=== PATIENT | male | born 1995 | race Hispanic/Latino ===

== ENCOUNTER 2025-02-28 15:14 | Emergency (ER) | payer BC, MEDICAID ==
[~2025-02-28] VITALS: Ht 170.2 cm; Wt 92.5 kg
[2025-02-28 15:23] VITALS: BP 99/49; PULSE 89; RESP 16; TEMP 98.1
--- NOTE | 2025-02-28 15:54 | NUR ---
PT JUST NOW PLACED IN MY ED BED 12
[2025-02-28 16:05] LABS: BASOPHILS # (AUTO) 0.03 K/uL (0.00-0.20); BASOPHILS % (AUTO) 0.9 % (0.0-5.0); EOSINOPHILS # (AUTO) 0.11 K/uL (0.00-0.70); EOSINOPHILS % (AUTO) 3.4 % (0.0-8.0); HEMATOCRIT 41.3 % (42-54); IMMATURE GRANULOCYTE ABSOLUTE 0.01 K/uL (0-1); LYMPHOCYTES # (AUTO) 0.2 K/uL (1.0-4.8); LYMPHOCYTES % (AUTO) 7.2 % (21.0-51.0); MEAN CORPUSCULAR HEMOGLOBIN 28.9 pg (27.0-33.0); MEAN CORPUSCULAR HGB CONC 33.2 g/dL (32.0-36.0); MEAN CORPUSCULAR VOLUME 87.1 fL (79-99); MONOCYTES # (AUTO) 0.3 K/uL (0.1-1.0); MONOCYTES % (AUTO) 8.8 % (3.0-13.0); NEUTROPHILS # (AUTO) 2.5 K/uL (1.8-7.7); NEUTROPHILS % (AUTO) 79.4 % (40.0-77.0); PLATELET COUNT (AUTO) 151 K/uL (130-400); RED BLOOD CELL COUNT(AUTO) 4.74 MIL/uL (4.50-6.20); RED CELL DISTRIBUTION WIDTH 14.8 % (11.0-15.5); WHITE BLOOD COUNT (AUTO) 3.2 K/uL (4.8-10.8)
[2025-02-28 16:21] LABS: INR 1.25 (0.85-1.15)
[2025-02-28 16:29] LABS: CREATININE 0.7 mg/dL (0.5-1.3); POTASSIUM 4.2 mmol/L (3.5-5.1)
--- NOTE | 2025-02-28 16:30 | NUR ---
I ASSISTED/WITNESSED A RECTAL EXAM BY DR COTTON
--- NOTE | 2025-02-28 18:00 | ERN ---
General Chief Complaint: Rectal Bleed Stated Complaint: RECTAL BLEEDING Time Seen by MD: 15:15 History of Present Illness Initial Comments 30-year-old male history of liver disease with metastasis, anticoagulated, who presents for bright red blood per rectum. Patient has a no complaints. No vomiting no extra bruising no a bit gastric pain no lower abdominal pain no diarrhea. He reports that today at a stool with some bright red blood in the toilet. He reports he may thing that he was hemorrhoids, but he was unsure. He is nontoxic in appearance. Allergies: Coded Allergies: amoxicillin (Unverified Allergy, Unknown, RASH, 02/28/25) Past Medical History Past Medical History: Cancer, CHF, Diabetes-Type II, Hypertension Medical History Other: TAKES ELIQUIS Past Surgical History: CABG Results Laboratory and Microbiology Lab and Micro Result Laboratory Tests Test 02/28/25 15:55 White Blood Count 3.2 K/uL (4.8-10.8) L Red Blood Count 4.74 MIL/uL (4.50-6.20) Hemoglobin 13.7 g/dL (14.0-18.0) L Hematocrit 41.3 % (42-54) L Mean Corpuscular Volume 87.1 fL (79-99) Mean Corpuscular Hemoglobin 28.9 pg (27.0-33.0) Mean Corpuscular Hemoglobin Concent 33.2 g/dL (32.0-36.0) Red Cell Distribution Width 14.8 % (11.0-15.5) Platelet Count 151 K/uL (130-400) Mean Platelet Volume 11.5 fL (7.5-10.5) H Immature Granulocyte % (Auto) 0.3 % (0-1) Neutrophils (%) (Auto) 79.4 % (40.0-77.0) H Lymphocytes (%) (Auto) 7.2 % (21.0-51.0) L Monocytes (%) (Auto) 8.8 % (3.0-13.0) Eosinophils (%) (Auto) 3.4 % (0.0-8.0) Basophils (%) (Auto) 0.9 % (0.0-5.0) Neutrophils # (Auto) 2.5 K/uL (1.8-7.7) Lymphocytes # (Auto) 0.2 K/uL (1.0-4.8) L Monocytes # (Auto) 0.3 K/uL (0.1-1.0) Eosinophils # (Auto) 0.11 K/uL (0.00-0.70) Basophils # (Auto) 0.03 K/uL (0.00-0.20) Absolute Immature Granulocyte (auto 0.01 K/uL (0-1) Nucleated Red Blood Cells 0.0 % (0.0-0.19) White Cell Morphology Comment See comments Prothrombin Time 13.0 SEC (9.6-11.6) H Prothromb Time International Ratio 1.25 (0.85-1.15) H Activated Partial Thromboplast Time 33.0 SEC (26.3-35.5) Sodium Level 135 mmol/L (136-145) L Potassium Level 4.2 mmol/L (3.5-5.1) Chloride Level 100 mmol/L (101-111) L Carbon Dioxide Level 23 mmol/L (21-32) Blood Urea Nitrogen 14 mg/dL (7-18) Creatinine 0.7 mg/dL (0.5-1.3) Glomerular Filtration Rate Calc 128 mL/min (>90) Random Glucose 88 mg/dL (70-105) Total Calcium 10.2 mg/dL (8.5-10.1) H MDM CC: Bright red blood per rectum beginning earlier today Historian: Patient Comorbidities: Liver cancer with metastasis, anticoagulated, CABG, diabetes, CHF, hypertension. Complicated medical patient. Limitations by social determinants of health: None Differential diagnosis: Hemorrhoids, lower GI bleed, upper GI bleed, anemia, coagulopathy, other Vital signs: Stable, remained stable in the ER Clinical exam: No obvious hemorrhoid, no blood on rectal exam. Abdomen soft nontender nondistended. Patient was nontoxic. No other signs of bleeding or bruising. labs ( independently ordered and interpreted by me ): Leukopenia to be CBC 3.2, 79% neutrophils. No bands. Hemoglobin stable at 13.7, normocytic. Coags show an INR 1.2, PT 13. Chemistry panel is stable. renal function normal no elevated BUN Based on the presentation patient likely has a unremarkable hemorrhoid or no life-threatening lower GI bleed. I had a discussion with the patient regarding the plan. They agreed to watch and wait approach outpatient workup. He was have follow up. I recommend he stops taking his anticoagulation for a day or two. He will return to the emergency department as needed. We will start conservative hemorrhoid measures. I recommend that he follow up as an outpatient ED Course Orders Procedure Category Date Status Time Cbc With Differential LAB 02/28/25 Complete 15:46 Prothrombin Time With LAB 02/28/25 Complete INR 15:46 Partial LAB 02/28/25 Complete Thromboplastin Time 15:46 Type And Screen BBK 02/28/25 Complete 15:46 12 Lead Ekg Tracing- EKG 02/28/25 Complete Technical 15:46 Basic Metabolic Panel LAB 02/28/25 Complete 15:46 Vital Signs Date Time Temp Pulse Resp B/P (MAP) Pulse Ox O2 Delivery O2 Flow Rate FiO2 02/28/25 15:23 98.1 89 16 99/49 90 0 DX & DISP Disposition: Discharge Departure Impression: Primary Impression: Lower GI bleed Additional Impression: Anticoagulated Condition: Stable Additional Instructions: As we discussed, your bleeding is likely due to a benign cause such as a hemorrhoid combined with anticoagulation medications. Your vital signs have been stable here in the emergency department Your blood work ( CBC, metabolic panel, PT /INR, metabolic panel ) is unremarkable. Your hemoglobin is 13.7 and you have stable platelets. As we discussed, your symptoms are likely related to a lower GI bleed, likely a bleeding internal hemorrhoid. These are generally self resolving and not dangerous. For pain relief you can take 1000 mg of Tylenol to 4 times a day. You can take 800 mg of ibuprofen as needed. You can take Sitz baths for 15-20 minutes several times per day to reduce bleeding. You can try an opra-[id number] hemorrhoid cream such as topical hydrocortisone or preparation H. Avoid straining during bowel movements. Consider stool softeners such as Metamucil. Drink plenty of liquids. I recommend 8+ cups of water per day. I recommend that you stop taking your Eliquis for the next 24-48 hours to slow the bleeding. Start taking it after that. Please return to the emergency department if you feel dizzy or lightheaded, have significant bleeding, had black stools, vomiting, fevers, or any other concerning symptom. Also, I recommend that you coordinate local oncological care. I have given you a referral to both Dr. Yap and Dr. Younger. Call for an appointment. [employer] Referrals: SELF,REFERRAL (PCP) JOHN YAP MD, TODD D MD WORTH, RYAN E DO February 28, 2025 18:00
--- NOTE | 2025-02-28 18:26 | NUR ---
VITAL SIGNS BEFORE PATIENT WAS DISCHARGED: BLOOD PRESSURE 108/41 MMHG TEMPERATURE 98.4 PULSE 73 P/MIN RESPIRATIONS 17 P/MIN O2 SATURATION 94% @ RA
--- NOTE | 2025-03-01 07:51 | EKG ---
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
== END 2025-02-28 18:25 | disposition home or self-care (01) ==
LOC: EDH 15:14
DX: K92.2 Gastrointestinal hemorrhage, unspecified (principal); E11.9 Type 2 diabetes mellitus without complications; I11.0 Hypertensive heart disease with heart failure; I50.9 Heart failure, unspecified; Z88.0 Allergy status to penicillin; Z95.1 Presence of aortocoronary bypass graft
CPT/HCPCS: 36415; 80048; 85025; 85610; 85730; 86850; 86900; 86901; 93005; 99284

== ENCOUNTER 2025-05-28 15:31 | Inpatient (IN) | payer OTHER ==
[~2025-05-28] VITALS: Ht 170.2 cm; Wt 88.9 kg
--- NOTE | 2025-05-28 15:51 | ERN ---
General Chief Complaint: Abdominal Pain Stated Complaint: ABDOMINAL PAIN Time Seen by MD: 15:34 Source: patient, family History of Present Illness Initial Comments Patient is a 30-year-old male brought in by family members due to constipation. Per family member patient has been recently receiving chemotherapy for liver cancer. He has not been able to defecate for one week. Allergies: Coded Allergies: amoxicillin (Unverified Allergy, Unknown, RASH, 02/28/25) Past Medical History Past Medical History: CHF, Liver Disease Medical History Other: TAKES ELIQUIS Past Surgical History: Other Surgical History Other: neck sx, heart sx ROS Dictation CONSTITUTIONAL: No chills, no fever, no weakness, no diaphoresis, no malaise. HEAD/FACE: No signs of trauma. EENT: No eye pain, no blurred vision, no tearing, no double vision, no ear pain, no ear discharge, no nose pain, no nasal congestion, no throat pain, no throat swelling, no mouth pain. RESPIRATORY: No cough, no orthopnea, no SOB, no stridor, no wheezing. CARDIOVASCULAR: No chest pain, no edema, no palpitations, no syncope. GASTROINTESTINAL/ABDOMINAL: abdominal pain, constipation, no diarrhea, no nausea, no vomiting. GENITOURINARY: No abnormal discharge, no dysuria, no frequent urination, no hematuria. No complaints of pain in the genitals. MUSCULOSKELETAL: No back pain, no gout, no joint pain, no joint swelling, no muscle pain, no muscle stiffness, no neck pain. INTEGUMENTARY: No change in color, no change in hair/nails, no dryness, no lesion, no lumps, no rash. NEUROLOGICAL/PSYCH: No anxiety, not depressed, no emotional problem, no headache, no numbness, no pre-existing deficit, no history of seizures, no tremors, no weakness. HEMATOLOGIC/LYMPHATIC: Not anemic, no history of blood clots, no apparent bleeding, no bruising, glands not swollen. All Systems Negative, Except as Noted. Physical Exam Physical Exam Dictation VITAL SIGNS: Reviewed. GENERAL APPEARANCE: Alert, oriented x3, no acute distress, obese. HEAD AND FACE: Non-traumatic. EYES: PERRL, pink conjunctivas, eyelid no trauma, anterior chamber clear. EARS: Pinnas intact and no signs of trauma or erythema. Ear canals clear and no discharge. TMs no erythema. NOSE: No discharge, no bleeding. OROPHARYNX: Mouth normal, teeth no caries, tongue pink. Pharynx clear, no erythema. Tonsils no exudates, no abscesses noted. Mucous membrane moist. NECK: Supple, non-tender, no thyromegaly, no masses, no JVD, no bruits. BREAST: Deferred. CHEST: No tenderness, no crepitus, no paradoxical movement, no retractions. LUNGS: Clear, well-ventilated, symmetric, no rales, no wheezing, no rhonchi, no stridor, good breath sounds bilaterally. HEART: Regular rate, regular rhythm, no murmur, no gallops. VASCULAR: No peripheral edema. ABDOMEN: Soft, positive bowel sounds, distended, no guarding, tender, no rebound, no masses no hepatomegaly, no splenomegaly, no Kurtz's sign, no hernias. RECTAL: Deferred. GENITAL: Deferred. NEUROLOGICAL: Normal speech, gross motor function intact, gross sensory function intact. MUSCULOSKELETAL: Neck nontender, full range of motion, back nontender, full range of motion. EXTREMITIES: Nontender, full range of motion. SKIN: Color pink, dry, no turgor, no rash, no lacerations, no abrasions, no contusions. LYMPHATICS: Deferred. Results Laboratory and Microbiology Lab and Micro Result Laboratory Tests Test 05/28/25 16:08 White Blood Count 6.9 K/uL (4.8-10.8) Red Blood Count 4.91 MIL/uL (4.50-6.20) Hemoglobin 14.4 g/dL (14.0-18.0) Hematocrit 42.8 % (42-54) Mean Corpuscular Volume 87.2 fL (79-99) Mean Corpuscular Hemoglobin 29.3 pg (27.0-33.0) Mean Corpuscular Hemoglobin Concent 33.6 g/dL (32.0-36.0) Red Cell Distribution Width 19.3 % (11.0-15.5) H Platelet Count 251 K/uL (130-400) Mean Platelet Volume 11.8 fL (7.5-10.5) H Immature Granulocyte % (Auto) 0.6 % (0-1) Neutrophils (%) (Auto) 80.1 % (40.0-77.0) H Lymphocytes (%) (Auto) 5.0 % (21.0-51.0) L Monocytes (%) (Auto) 13.7 % (3.0-13.0) H Eosinophils (%) (Auto) 0.3 % (0.0-8.0) Basophils (%) (Auto) 0.3 % (0.0-5.0) Neutrophils # (Auto) 5.5 K/uL (1.8-7.7) Lymphocytes # (Auto) 0.3 K/uL (1.0-4.8) L Monocytes # (Auto) 0.9 K/uL (0.1-1.0) Eosinophils # (Auto) 0.02 K/uL (0.00-0.70) Basophils # (Auto) 0.02 K/uL (0.00-0.20) Absolute Immature Granulocyte (auto 0.04 K/uL (0-1) Nucleated Red Blood Cells 0.0 % (0.0-0.19) White Cell Morphology Comment See comments Red Blood Cell Morphology See comments Sodium Level 128 mmol/L (136-145) L Potassium Level 5.3 mmol/L (3.5-5.1) H Chloride Level 96 mmol/L (101-111) L Carbon Dioxide Level 21 mmol/L (21-32) Blood Urea Nitrogen 114 mg/dL (7-18) *H Creatinine 4.5 mg/dL (0.5-1.3) H Glomerular Filtration Rate Calc 17 mL/min (>90) Random Glucose 85 mg/dL (70-105) Total Calcium 10.9 mg/dL (8.5-10.1) H Total Bilirubin 1.9 mg/dL (0.2-1.0) H Aspartate Amino Transf (AST/SGOT) 43 U/L (10-37) H Alanine Aminotransferase (ALT/SGPT) 21 U/L (12-78) Alkaline Phosphatase 185 U/L (50-136) H Total Protein 7.0 g/dL (6.0-8.3) Albumin 2.7 g/dL (3.5-5.0) L Labs Reviewed?: Yes EKG/XRAY/US/CT/MRI CT Scan Comment [facility] [address] [place] [id number] IMAGING REPORT Signed PATIENT: SERAFIN EDGE MR#: [id number] : 1995 SEX: M AGE: 30 LOCATION: ED ORDER 46 STATUS: REG REPORT#: [id number] SERVICE [id number] REASON: ABD PAIN ORDERING PHYSICIAN: FELIX MENDEZ MD PROCEDURE: ABD PEL WO - CT ABDOMEN/PELVIS W/O CONTRAST EXAM: CT Abdomen and Pelvis Without IV contrast CLINICAL HISTORY: ABD PAIN TECHNIQUE: Axial computed tomography images of the abdomen and pelvis without intravenous contrast. CONTRAST: No IV contrast. COMPARISON: None provided. FINDINGS: LUNG BASES: Trace pleural effusion on right side. The lung bases appear clear. LIVER: Appears normal in size with nodular surface and shows few hypodense lesions both lobes. Triple phase CT is advised. GALLBLADDER AND BILE DUCTS: The gallbladder appears within normal limits. No radioopaque gallstones are seen. No biliary ductal dilatation is evident. PANCREAS: Unremarkable. SPLEEN: Spleen appears enlarged (17 cm) and shows areas of hypodensity in the mid and lower poles. Triple phase CT is advised to rule out splenic infarcts ADRENAL GLANDS: Unremarkable. KIDNEYS, URETERS, AND BLADDER: The kidneys appear within normal limits. There is no hydronephrosis or hydroureter. No urinary calculi are seen. STOMACH AND BOWEL: Unremarkable appearance of the stomach and bowel. No evidence of bowel obstruction. No evidence suggesting enteritis or colitis. APPENDIX: No evidence of acute appendicitis on CT examination. PERITONEUM: Gross free fluid. No free air. LYMPH NODES: No lymphadenopathy is evident. REPRODUCTIVE: Unremarkable as visualized. VASCULATURE: Splenic hilar and splenorenal collaterals. No evidence of abdominal aortic aneurysm. BONES: Generalised subcutaneous fat stranding and oedema. No aggressive appearing osseous lesion. No acute osseous pathology evident. IMPRESSION: 1. Nodular liver with hypodense lesions, concerning for cirrhosis with possible masses. 2. Splenomegaly (17 cm) with hypodense lesions, concerning for splenic infarcts. 3. Portal hypertension with splenic hilar and splenorenal collaterals. 4. Gross ascites. 5. Recommend triple phase CT of the liver and spleen for further evaluation /[place] DICTATED BY: NICK HOBSON MD DATE: 05/28/251829 ELECTRONICALLY SIGNED BY: NICK HOBSON MD DATE: 05/28/251829 MDM MDM: Differential diagnosis: UTI, liver cancer, splenomegaly, constipation Rationale: Tests considered and ordered secondary to shared decision making include: Previous outside records reviewed: Old ER visits. Risk of complication and/or morbidity or mortality of patient management: None Medications-Per medication reconciliation Need for hospitalization: Patient does meet criteria for hospitalization. Need for emergency major/minor surgery: No There are no social concerns with this patient. Prescription drug management Prescriptions will include symptomatic care Patient's prior external medical records from other ER visits were reviewed by me as indicated. Prior testing and results from previous visits were reviewed. Prior tests were taken into account with medical decision making and resource utilization, independent historian/historians were used to obtain complete medical history. I independently interpreted the test that were performed, results were reviewed by me and considered findings on radiology if ordered. Medical management and examination interpretation discussions were had by me with other qualified healthcare professionals as indicated for the patient's care. Patient will be admitted under the care of hospitalist group for ongoing management. ED Course Orders Procedure Category Date Status Time Cbc With Differential LAB 05/28/25 Complete 15:46 Comprehensive LAB 05/28/25 Complete Metabolic Panel 15:46 Urinalysis Profile LAB 05/28/25 Logged 15:46 Ct Abdomen/Pelvis W/O CT 05/28/25 Resulted Contrast 15:46 Lactulose 20 Gm/30 Ml PHA 05/28/25 Complete Udcup (Constulose 16:00 Magnesium Citrate PHA 05/28/25 Complete (Magnesium Citrate) 16:00 Ondansetron 4mg Inj PHA 05/28/25 In Process (Zofran 4mg Inj) 18:30 Ondansetron 4mg Inj PHA 05/28/25 Complete (Zofran 4mg Inj) 18:04 Current Medications Medications (Trade) Dose Ordered Sig/[place] Route PRN Reason Start Time Stop Time Status Last Admin Dose Admin Lactulose (Constulose 20gm/ 30ml Udcup) 20 gm ONCE ONCE PO 05/28/25 16:00 05/28/25 16:01 DC 05/28/25 16:41 Magnesium Citrate (Magnesium Citrate) 296 ml ONCE ONCE PO 05/28/25 16:00 05/28/25 16:01 DC 05/28/25 16:41 Ondansetron HCl (zoFRAN 4MG INJ) 4 mg ONCE ONCE IVP 05/28/25 18:30 05/28/25 18:31 Ondansetron HCl (zoFRAN 4MG INJ) 4 mg STK-MED ONCE .ROUTE 05/28/25 18:04 05/28/25 18:09 DC Vital Signs Date Time Temp Pulse Resp B/P (MAP) Pulse Ox O2 Delivery O2 Flow Rate FiO2 05/28/25 18:17 97.9 77 18 108/34 94 Room Air* 0 21 05/28/25 15:38 97.2 81 18 86/29 91 Room Air* 0 21 05/28/25 15:34 97.2 81 18 86/29 91 Room Air 0 DX & DISP Disposition: Inpatient Decision to Admit Time: 18:28 Departure Impression: Primary Impression: Liver cancer Additional Impressions: Acute kidney injury, Hyperkalemia, Splenomegaly, Constipation Condition: Stable Referrals: SELF,REFERRAL (PCP) FELIX MENDEZ MD May 28, 2025 15:51
[2025-05-28 16:15] LABS: IMMATURE GRANULOCYTE ABSOLUTE 0.04 K/uL (0-1); NUCLEATED RED BLOOD CELLS 0.0 % (0.0-0.19); PLATELET COUNT (AUTO) 251 K/uL (130-400); RED BLOOD CELL COUNT(AUTO) 4.91 MIL/uL (4.50-6.20); RED CELL DISTRIBUTION WIDTH 19.3 % (11.0-15.5); WHITE BLOOD COUNT (AUTO) 6.9 K/uL (4.8-10.8)
[2025-05-28] MEDS: MAGNESIUM CITRATE 296 ML SOLUTION PO ONE (16:41)
[2025-05-28] MEDS: LACTULOSE 20 GM/30 ML UDCUP PO ONE (16:41)
[2025-05-28 16:54] LABS: ASPARTATE AMINOTRANSFERASE 43.0 U/L (10-37); CREATININE 4.5 mg/dL (0.5-1.3); GLOMERULAR FILTR. RATE CALC 17.0 mL/min (>90); GLUCOSE,RANDOM 85.0 mg/dL (70-105); SODIUM SERUM 128.0 mmol/L (136-145); TOTAL PROTEIN, SERUM 7.0 g/dL (6.0-8.3)
[2025-05-28 16:56] LABS: UREA NITROGEN, BLOOD 114.0 mg/dL (7-18)
--- NOTE | 2025-05-28 17:31 | HMCIMG ---
EXAM: CT Abdomen and Pelvis Without IV contrast CLINICAL HISTORY: ABD PAIN TECHNIQUE: Axial computed tomography images of the abdomen and pelvis without intravenous contrast. CONTRAST: No IV contrast. COMPARISON: None provided. FINDINGS: LUNG BASES: Trace pleural effusion on right side. The lung bases appear clear. LIVER: Appears normal in size with nodular surface and shows few hypodense lesions both lobes. Triple phase CT is advised. GALLBLADDER AND BILE DUCTS: The gallbladder appears within normal limits. No radioopaque gallstones are seen. No biliary ductal dilatation is evident. PANCREAS: Unremarkable. SPLEEN: Spleen appears enlarged (17 cm) and shows areas of hypodensity in the mid and lower poles. Triple phase CT is advised to rule out splenic infarcts ADRENAL GLANDS: Unremarkable. KIDNEYS, URETERS, AND BLADDER: The kidneys appear within normal limits. There is no hydronephrosis or hydroureter. No urinary calculi are seen. STOMACH AND BOWEL: Unremarkable appearance of the stomach and bowel. No evidence of bowel obstruction. No evidence suggesting enteritis or colitis. APPENDIX: No evidence of acute appendicitis on CT examination. PERITONEUM: Gross free fluid. No free air. LYMPH NODES: No lymphadenopathy is evident. REPRODUCTIVE: Unremarkable as visualized. VASCULATURE: Splenic hilar and splenorenal collaterals. No evidence of abdominal aortic aneurysm. BONES: Generalised subcutaneous fat stranding and oedema. No aggressive appearing osseous lesion. No acute osseous pathology evident. IMPRESSION: 1. Nodular liver with hypodense lesions, concerning for cirrhosis with possible masses. 2. Splenomegaly (17 cm) with hypodense lesions, concerning for splenic infarcts. 3. Portal hypertension with splenic hilar and splenorenal collaterals. 4. Gross ascites. 5. Recommend triple phase CT of the liver and spleen for further evaluation /[place]
--- NOTE | 2025-05-28 18:32 | HP ---
History of Present Illness Reason for Visit: constipation History of Present Illness Mr. Seay is a 30-year-old male that was seen and examined today on 05/28/2025. Patient is a good historian of personal health. Patient's aunt, Eileen Smith is at bedside and provides the following information. Patient came to the emergency department with a chief complaint of constipation. Onset was one week. Location is rectum. Duration is constant. Character is described as no bowel movement for one week. There was no alleviating factors. There was no aggravating factors. Aunt reports associated decreased water intake for one week and bloating. Today in the emergency department sodium 128, potassium 5.3, creatinine 4.5, total bilirubin 1.9, no urinalysis has been collected or sent to lab. CT of abdomen and pelvis shows nodular liver, splenomegaly, portal hypertension. Emergency room physician recommended patient be admitted with a diagnosis of acute kidney injury. Past Medical History ADDITIONAL PAST MEDICAL HISTORY: [Liver CA with metastasis to neck, CHF (congenital origin and unknown EF), outpatient oncologist, Dr. Gutierrez] SOCIAL HISTORY: [Negative for smoking, alcohol use, drug use. Patient lives with his aunt, Eileen. Patient is typically independent of his ADLs. Patient denies difficulty pain is bills.] SURGICAL HISTORY: [Neck tumor excision, heart surgery, Fontan surgery] Review of Systems General: No Fever, No Chills, No Night Sweats, No Fatigue, No Malaise, No Appetite, No Other HEENT: No Head Aches, No Visual Changes, No Eye Pain, No Ear Pain, No Dysphasia, No Sinus Congestion, No Post Nasal Drip, No Sore Throat, No Other Pulmonary: No Dyspnea, No Cough, No Pleuritic Chest Pain, No Other Cardiovascular: No: Chest Pain, Palpitations, Orthopnea, Paroxysmal Noc. Dyspnea, Edema, Lt Headedness, Other Gastrointestinal: Abdominal Pain, Constipation; No: Nausea, Vomiting, Diarrhea, Melena, Hematochezia, Other Genitourinary: No Dysuria, No Frequency, No Incontinence, No Hematuria, No Retention, No Other Musculoskeletal: No: other, neck pain, shoulder pain, arm pain, back pain, hand pain, leg pain, foot pain Skin: No Urticaria, No Rash, No Other Neurological: No: Weakness, Numbness, Incoordination, Change in speech, Confusion, Seizures, Other Allergies: Coded Allergies: amoxicillin (Unverified Allergy, Unknown, RASH, 02/28/25) Scheduled Apixaban (Eliquis), 5 MG PO BID, (Reported) Buspirone HCl (Buspirone HCl), 1 TAB PO BID, (Reported) Folic Acid (Folic Acid), 1 MG PO DAILY, (Reported) Hydroxyzine HCl (Hydroxyzine HCl), 1 TAB PO BID, (Reported) Lisinopril (Lisinopril), 1 TAB PO DAILY, (Reported) Scheduled PRN Tramadol HCl/Acetaminophen (Tramadol-Acetaminophn 37.5-325), 1-2 TAB PO Q8H PRN for pain, (Reported) Exam Vital Signs Vital Signs Date Time Temp Pulse Resp B/P (MAP) Pulse Ox O2 Delivery O2 Flow Rate FiO2 05/28/25 18:17 97.9 77 18 108/34 94 Room Air* 0 21 General Appearance: Alert, Oriented X3, Cooperative, mild distress HEENT: Atraumatic, EOMI, Mucous membr. moist/pink Respiratory: Clear to auscultation, Normal air movement, NL respiratory effort Cardiovascular: Regular rate, Regular rhythm, Normal S1, Normal S2 Abdominal: Normal bowel sounds, Soft, No tenderness Extremities: No edema Skin: No significant lesion Neuro: Normal speech, Strength at 5/5 X4 ext, Sensation intact, Cranial nerves 3-12 NL Psych/Mental Status: Mental status NL, Mood NL, Thoughts/Content NL Assessment/Plan ASSESSMENT: [ Acute kidney injury, POA Hyperkalemia, POA Hyponatremia, POA Constipation, POA Splenomegaly, POA Portal hypertension, POA Liver cancer CHF] PLAN: [ Admit patient to medical floor as inpatient status. Place patient on telemetry monitoring. Constipation: Patient received Mag citrate times 1 in the ER. Patient received lactulose 20 g/30 mL by mouth times 1 in the ER Acute kidney injury: Calculate FENA Check urine sodium, creatinine, osmolality Avoid nephrotoxic agents when possible Renally dose all medications when possible Patient will be followed by Nephrology Service, Dr. Rueda. Monitor patient's labs. Weight patient daily. Monitor intake and output. Hyperkalemia: Patient received Lokelma 10 g by mouth as 1 in the ER Hyponatremia: Patient is being followed by Nephrology Service. 0.9% NS at 75 mL/HR. CHF of unknown EF: Check 2D echo in a.m., follow up with the results Consider resuming home medications once they have been reconciled. At time of admission home medications have been reconciled. Avoid diuresis due to known acute kidney injury currently in exacerbation Liver CA: Consult patient's oncologist, Dr. Gutierrez for evaluation and further recommendations. Portal hypertension, splenomegaly: Consider consulting Gastroenterology service if recommended by oncology service. GI prophylaxis, Protonix DVT prophylaxis, Keyur's and SCDs avoid anticoagulation at this time due to known liver CA. ADVANCED CARE PLANNING 1. Which of the following were discussed? Hospice Care - Yes Therapeutic options - yes Advance Directives - Yes - patient states his aunt, Eileen is his designated medical power of research attorney Other discussions - patient wishes to remain a full code at this time 2. Discussed with who? Patient 3. Voluntary nature of this service was explained to the patient? Yes 4. Amount of time spent - ___16 minutes____ 5. Reviewed by Physician? (if this service was performed by NPP) Yes This document was generated in part using voice recognition software, occasional wrong word or sound alike substitutions may have occurred due to the inherent limitations of voice recognition software. Read the chart carefully and paul gnize using context, where the substitutions have occurred. Although every effort was made to edit the content, cable installer repairer and typing errors may occur ATTESTATION BY PHYSICIAN I have seen and examined the patient. I reviewed the documentation, medical decision making, and treatment plan as noted by the mid-level provider above. I agree with the findings and plan of care.] JOSE ALEJANDRO [facility] May 28, 2025 18:32
[2025-05-28] MEDS ORDERED: BUSP5TAB3 PO (19:17)
[2025-05-28] MEDS ORDERED: HYDR-3421 PO (19:17)
[2025-05-28] MEDS ORDERED: APIX5TAB PO (19:17)
[2025-05-28] MEDS ORDERED: FOLI0.4T6 PO (19:17)
[2025-05-28] MEDS ORDERED: LISI10TA24 PO (19:17)
[2025-05-28] MEDS ORDERED: TRAM-543 PO (19:17)
--- NOTE | 2025-05-28 19:17 | NUR ---
MEDS UPDATES. PENDING RECONCILIATION
--- NOTE | 2025-05-28 21:03 | NUR ---
SPOKE TO DR BLACK FOR NEPHROLOGY CONSULT. MADE AWARE. ORDERS GIVEN AND TRANSCRIBED.
[2025-05-28] MEDS: 0.9%NACL 1000ML 1,000 ML IV SCH (21:07)
[2025-05-28] MEDS: NA ZIRCON CYCLOSIL(LOKELMA 10GM) PO ONE (21:09)
[2025-05-29 02:11] LABS: CREATININE,URINE RANDOM 265.24 mg/dL (30-135)
[2025-05-29 02:17] LABS: APPEARANCE,URINE CLEAR (CLEAR); GLUCOSE, URINE (UA) NEGATIVE (NEGATIVE); LEUKOCYTE ESTERASE ,URINE NEGATIVE Leu/uL (NEGATIVE); NITRATE,URINE NEGATIVE (NEGATIVE); OCCULT BLOOD,URINE NEGATIVE (NEGATIVE); OTHER CASTS, URINE 1 /LPF (None Seen); SQUAMOUS EPITHELIAL CELL,UR RARE /HPF (0-2)
--- NOTE | 2025-05-29 07:05 | NUR ---
Assumed patients care.
--- NOTE | 2025-05-29 08:00 | NUR ---
Patient was placed in a hospital bed. Bed low and locked, bed rails up x3.
[2025-05-29 08:06] LABS: IMMATURE GRANULOCYTE ABSOLUTE 0.03 K/uL (0-1); NUCLEATED RED BLOOD CELLS 0.0 % (0.0-0.19); PLATELET COUNT (AUTO) 212 K/uL (130-400); RED BLOOD CELL COUNT(AUTO) 4.82 MIL/uL (4.50-6.20); RED CELL DISTRIBUTION WIDTH 19.9 % (11.0-15.5); WHITE BLOOD COUNT (AUTO) 6.2 K/uL (4.8-10.8)
[2025-05-29 08:18] LABS: CREATININE 4.4 mg/dL (0.5-1.3); GLOMERULAR FILTR. RATE CALC 18.0 mL/min (>90); GLUCOSE,RANDOM 78.0 mg/dL (70-105); PHOSPHORUS 5.4 mg/dL (2.5-4.9); SODIUM SERUM 126.0 mmol/L (136-145)
[2025-05-29 08:23] LABS: UREA NITROGEN, BLOOD 118.0 mg/dL (7-18)
--- NOTE | 2025-05-29 10:17 | NUR ---
Home medication have been reviewed and in the system; pending to be reconsiled by attending physician.
--- NOTE | 2025-05-29 11:34 | NUR ---
Called for report. Spoke to . Evonne JOVANY. Discussed plan of care, medications, home medications that need to be reconsiled, and pending consults. SBAR in chart.
--- NOTE | 2025-05-29 12:19 | PN ---
[facility] PROGRESS NOTE Date of Service: May 29, 2025 Time of Service: 12:16 SUBJECTIVE: [ ] Patient came to the emergency department with a chief complaint of constipation. Onset was one week. Location is rectum. Duration is constant. Character is described as no bowel movement for one week. There was no alleviating factors. There was no aggravating factors. Aunt reports associated decreased water intake for one week and bloating. Today in the emergency department sodium 128, potassium 5.3, creatinine 4.5, total bilirubin 1.9, no urinalysis has been collected or sent to lab. CT of abdomen and pelvis shows nodular liver, splenom egaly, portal hypertension. Emergency room physician recommended patient be admitted with a diagnosis of acute kidney injury. 05/29/25 patient was seen and examined. Patient appears fatigue weak failure to strive. Poor oral intake Review home medication we will hold off on NSAIDs in lisinopril. Waiting for oncologists recommendations apparently patient came from [facility] pexyw-my-doxbvdih reports a wanted to be closer to home. REVIEW OF SYSTEMS CONSTITUTIONAL: Denies fevers, chills, or night sweats. No unintentional weight loss reported. NEUROLOGICAL: Denies headache, amaurosis fugax, motor weakness, sensory deficit, vertigo/spinning sensation, gait abnormalities, or tremors. ENT: No hearing loss, otalgia, otorrhea, rhinitis, rhinorrhea, hoarseness, or sore throat. CARDIOVASCULAR: Denies any exertional angina, dyspnea on exertion, orthopnea, paroxysmal nocturnal dyspnea, palpitations, life-threatening arrhythmias, claudication. PULMONARY: Denies any shortness of breath, cough, phlegm/sputum, hemoptysis, pleuritic chest pain. SLEEP: Denies morning headaches, daytime somnolence or napping. Denies difficulty falling asleep, staying asleep, waking from sleep. Denies knowledge of snoring. GASTROINTESTINAL: Denies any type of dysphagia to either liquids or solids. Denies nausea, vomiting, pyrosis, early satiety, abdominal pain, diarrhea, constipation, or changes in stool consistency or caliber. Denies coffee-ground emesis, hematemesis, hematochezia, or melanotic stools. GENITOURINARY: Denies frequency, urgency, nocturia, hematuria or incontinence (Storage/Irritative symptoms.) Low urinary stream, straining to void, urinary intermittency or hesitancy, splitting of the voiding stream, terminal dribbling. ENDOCRINOLOGIC: Denies polyuria, polydipsia, polyphagia or heat/cold intolerances. HEMATOLOGIC: Denies thrombophilia/previous clots, or coagulopathy/bleeding disorders. ONCOLOGIC: Denies personal history of malignancy. DERMATOLOGIC: Denies rashes or pruritus. PSYCHIATRIC: Denies any suicidal or homicidal ideation. Denies hallucinations. PHYSICAL EXAM GENERAL APPEARANCE: The patient is awake, alert, and oriented, in no acute cardiopulmonary distress. NEUROLOGICAL: Cranial nerves II-XII grossly intact. Motor is 5/5 in bilateral upper and lower extremities proximal to distal. No sensory deficits. HEENT: Face is symmetric. Pupils are equal and reactive. Extraocular movements are intact. NECK: Supple. No JVD. No thyromegaly. No submental, submandibular, pre- /postauricular, occipital or supraclavicular lymphadenopathy. CHEST: Normal chest expansion. No Telemetry. LUNGS: Absence of any rales, rhonchi or any wheezing. CARDIOVASCULAR: Regular. S1 and S2 normal. No appreciable rubs, murmurs or gallops. ABDOMEN: Soft, nontender, and nondistended. There is no rebound, voluntary guarding, or rigidity. : Deferred. No Landis. EXTREMITIES: Non-edematous and not cyanotic. No clubbing. Good capillary refill. SKIN: No skin breakdown. Vital Signs (last 8hr) Date Time Temp Pulse Resp B/P (MAP) Pulse Ox O2 Delivery O2 Flow Rate FiO2 05/29/25 11:38 98.1 77 15 116/30 94 Room Air* 0 21 05/29/25 07:05 97.9 76 18 107/32 94 Room Air* 0 21 05/29/25 06:03 98.2 71 18 118/37 93 Room Air* 0 21 05/29/25 04:54 98.2 69 23 121/36 93 Room Air* 0 21 LABS: Laboratory: Test 05/29/25 07:47 05/29/25 01:29 05/28/25 16:08 Range/Units White Blood Count 6.2 4.8-10.8 K/uL Red Blood Count 4.82 4.50-6.20 MIL/uL Hemoglobin 14.2 14.0-18.0 g/dL Hematocrit 44.0 42-54 % Mean Corpuscular Volume 91.3 79-99 fL Mean Corpuscular Hemoglobin 29.5 27.0-33.0 pg Mean Corpuscular Hemoglobin Concent 32.3 32.0-36.0 g/dL Red Cell Distribution Width 19.9 H 11.0-15.5 % Platelet Count 212 130-400 K/uL Mean Platelet Volume 11.8 H 7.5-10.5 fL Immature Granulocyte % (Auto) 0.5 0-1 % Neutrophils (%) (Auto) 80.4 H 40.0-77.0 % Lymphocytes (%) (Auto) 5.0 L 21.0-51.0 % Monocytes (%) (Auto) 13.1 H 3.0-13.0 % Eosinophils (%) (Auto) 0.5 0.0-8.0 % Basophils (%) (Auto) 0.5 0.0-5.0 % Neutrophils # (Auto) 5.0 1.8-7.7 K/uL Lymphocytes # (Auto) 0.3 L 1.0-4.8 K/uL Monocytes # (Auto) 0.8 0.1-1.0 K/uL Eosinophils # (Auto) 0.03 0.00-0.70 K/uL Basophils # (Auto) 0.03 0.00-0.20 K/uL Absolute Immature Granulocyte (auto 0.03 0-1 K/uL Nucleated Red Blood Cells 0.0 0.0-0.19 % Sodium Level 126 L 136-145 mmol/L Potassium Level 5.4 H 3.5-5.1 mmol/L Chloride Level 96 L 101-111 mmol/L Carbon Dioxide Level 19 L 21-32 mmol/L Blood Urea Nitrogen 118 *H 7-18 mg/dL Creatinine 4.4 H 0.5-1.3 mg/dL Glomerular Filtration Rate Calc 18 >90 mL/min Random Glucose 78 70-105 mg/dL Total Calcium 11.0 H 8.5-10.1 mg/dL Phosphorus Level 5.4 H 2.5-4.9 mg/dL Magnesium Level 2.30 1.80-2.40 mg/dL Urine Color YELLOW YELLOW Urine Appearance CLEAR CLEAR Urine pH 5.0 5.0-8.0 Urine Specific [place] 1.015 1.001-1.031 Urine Protein 20 H NEGATIVE mg/dL Urine Glucose (UA) NEGATIVE NEGATIVE mg/dL Urine Ketones NEGATIVE NEGATIVE mg/dL Urine Occult Blood NEGATIVE NEGATIVE Urine Nitrate NEGATIVE NEGATIVE Urine Bilirubin 0.5 H NEGATIVE mg/dL Urine Urobilinogen 0.2 0.2-1.0 mg/dL Urine Leukocyte Esterase NEGATIVE NEGATIVE Shelley/uL Urine RBC 2-5 H 0-1 /HPF Urine WBC 6-10 H 0-1 /HPF Urine Squamous Epithelial Cells RARE 0-2 /HPF Urine Bacteria None None Seen /HPF Urine Hyaline Casts 2-5 H 0-1 /LPF /LPF Urine Other Casts 1 None Seen /LPF Urine Random Creatinine 265.24 H 30-135 mg/dL Urine Random Sodium < 13 L 40-220 mmol/l White Cell Morphology Comment See comments Red Blood Cell Morphology See comments Total Bilirubin 1.9 H 0.2-1.0 mg/dL Aspartate Amino Transf (AST/SGOT) 43 H 10-37 U/L Alanine Aminotransferase (ALT/SGPT) 21 12-78 U/L Alkaline Phosphatase 185 H 50-136 U/L Total Protein 7.0 6.0-8.3 g/dL Albumin 2.7 L 3.5-5.0 g/dL Current Medications Medications (Trade) Dose Ordered Sig/[place] Route PRN Reason Start Time Stop Time Status Last Admin Dose Admin Acetaminophen (TYLenol 325MG TAB) 650 mg Q6H PRN PO TEMPERATURE GREATER THAN 101.5 05/28/25 19:30 06/27/25 19:29 Heparin Sodium (Porcine) (HEParin 5,000 UNIT VIAL) 5,000 unit BID SQ 05/28/25 21:00 05/28/25 20:34 DC Hydralazine HCl (APRESOLine 20MG INJ) 10 mg Q6H PRN IV For:SBP above 160;DBP above 90 05/28/25 19:30 06/27/25 19:29 Midodrine (PROAMatine 5 MG TABLET) 10 mg TID PO 05/29/25 14:00 06/28/25 13:59 Morphine Sulfate (morPHINE 2MG SYG) 2 mg Q4H PRN IVP SEVERE PAIN (7-10) 05/28/25 19:30 06/04/25 19:29 Ondansetron HCl (zoFRAN 4MG INJ) 4 mg Q6H PRN IV NAUSEA/VOMITING 05/28/25 19:30 06/27/25 19:29 Pantoprazole Sodium (PROTonix 40MG TAB) 40 mg DAILY PO 05/29/25 09:00 06/28/25 08:59 05/29/25 10:02 40 MG Sodium Chloride 1,000 ml @ 75 mls/hr [id number] IV 05/28/25 19:30 06/27/25 19:29 05/29/25 10:03 75 MLS/HR DIAGNOSTICS / RADIOLOGY: [ ] ASSESSMENT: [ ] Acute kidney injury on CRF stage IV no hemodialysis, POA Failure to Thrive POA ascites secondary to liver cancer Metastatic POA liver cancer Metastatic with cirrhosis POA Hypercoaguable state on prophaxlis Eliquis s/p removal of tumor 01/18 POA Electrolytes derangement: Hyperkalemia Hyponatremia, , POA Constipation, POA Splenomegaly, POA Portal hypertension, POA severe protein calorie malnutrition POA Debility with physical deconditioning PPOA PLAN: [ ] Admit: medical floor condition:poor prognosis Status:full IVF:[facility], oncologist will monitor H/H trends: transfuse to keep Hgb above 7.0 imaging : Sonogram renal. avoid NSAIDs stop lisinopril Labs cbc, cmp, mag+ Replace electrolytes as needed as per protocol to keep potassium above 4.0 magnesium 2.0. Home medications RECONCILED Decubitus precautions Supportive measures: DVT ppx, GI ppx all questions answered Supervising MD: Dr. margarita Merida c/d This document was generated in part using voice recognition software, occasional wrong word or sound alike substitutions may have occurred due to the inherent limitations of voice recognition software. Read the chart carefully and recognize using context, where the substitutions have occurred. Although every effort was made to edit the content, public health internship and typing errors may occur ATTESTATION BY PHYSICIAN I have seen and examined the patient. I reviewed the documentation, medical decision making, and treatment plan as noted by the mid-level provider above. I agree with the findings and plan of care. Kimber Zimmerman MD, [facility]IZABETH NP May 29, 2025 12:19
[2025-05-29 12:30] VITALS: O2SAT 95
--- NOTE | 2025-05-29 12:41 | CONS ---
REFERRING PHYSICIAN: Jose Roberto Lowe MD REASON FOR CONSULTATION: Renal failure. HISTORY OF PRESENT ILLNESS: A 30-year-old male presented to the hospital with complaints of failure to thrive. The patient has been having poor intake and generalized fatigue. The patient was found to have significant constipation. In the Emergency Room, the patient was found to have significant ascites. Laboratory values revealed an elevated BUN and creatinine. The patient has a history of known liver cancer and does follow up with Oncology and the patient is being seen in consultation for all of the above. PAST MEDICAL HISTORY: Metastatic cancer. PAST SURGICAL HISTORY: He has had tumor excision. SOCIAL HISTORY: No alcohol or tobacco use. FAMILY HISTORY: There is no renal disease in his family. ALLERGIES: HE HAS ALLERGY TO AMOXICILLIN. MEDICATIONS: All noted. REVIEW OF SYSTEMS: CONSTITUTIONAL: He is feeling weak and tired. HEENT: No change in vision. No change in hearing. CARDIOVASCULAR: There is no current chest pain or palpitations. PULMONARY: There is no shortness of breath. GASTROINTESTINAL: Appetite has been poor. MUSCULOSKELETAL: Complaints of weakness. NEUROLOGIC: No seizures or focal deficits. PSYCHIATRIC: No history of hallucination or psychosis. ENDOCRINE: There is no diabetes mellitus or thyroid disease. HEME: As described above. PHYSICAL EXAMINATION: VITAL SIGNS: Blood pressure is 107/32, pulse in the 70s. He is afebrile. GENERAL: He is a chronically ill male, much older than appearing. HEENT: Head is atraumatic. Pupils equal, round, reactive to light. Oropharynx is without exudate. Nares clear. NECK: There is no JVP. No thyromegaly. CARDIOVASCULAR: Regular. There is no S3 or S4 gallop. LUNGS: Coarse with equal thoracic movement. ABDOMEN: Soft, nondistended, nontender. EXTREMITIES: There is no clubbing, no cyanosis. NEUROLOGICAL: He is awake. He is alert. He is oriented. SKIN: Reveals no rash no nodule. BACK: There is no CVA tenderness. No back deformities. LABORATORY DATA: Sodium 126, potassium 5.4, chloride 96, bicarbonate 19, BUN 118 with a creatinine of 4.4. Hemoglobin 14, hematocrit 44. Urinalysis is noted. Urine sodium is less than 13. IMPRESSION: * Acute renal failure. * Metastatic liver cancer with cirrhosis. * Hypotension. * Electrolyte abnormalities. PLAN: The patient presents with significant renal dysfunction. The patient's urine sodium of less than 20 consistent with a prerenal azotemia from the cirrhosis. The patient will need to be seen by Oncology in regards to his overall prognosis. The patient will be started on midodrine for the hypotension. The patient's IV fluids will need to be discontinued once he is tolerating some amount of a diet. All labs will be repeated in the morning. I did discuss the case in detail with the patient's family. The patient will be given a dose of Lokelma for the hyperkalemia. All labs will be repeated in the morning. TID: [id number] RECEIPT: [id number]
[2025-05-29 13:09] VITALS: BP 108/38; PULSE 72; RESP 18; TEMP 98.2
--- NOTE | 2025-05-29 16:00 | NUR ---
D/C PLAN CM spoke to patient and patient's aunt named Marilyn at bedside. Reports patient is semi independent with ADLs. States he ambulates with a walker. Denies having any home services. States she stays with patient to assist in care. Plan for now is to return home to same setting. No needs verbalized. CM to f/u. Addendum: 05/29/25 at 1602 by BRUNILDA RADFORD CM Amended: Links added. Addendum: 05/29/25 at 1604 by BRUNILDA RADFORD CM Amended: Links added.
[2025-05-29 17:39] VITALS: BP 110/41; PULSE 70; RESP 18; TEMP 98
[2025-05-29 17:40] VITALS: BP 110/41; PULSE 70; RESP 18; TEMP 98
[2025-05-29 20:00] VITALS: BP 109/37; PULSE 64; RESP 16; TEMP 97.9; O2SAT 93
--- NOTE | 2025-05-29 20:02 | HMCSR ---
APPROVED REPORT EXAM: Two-dimensional and M-mode echocardiogram with Doppler and color Doppler. Study Details: hx: CHD INDICATION ICD: CHF unknown EF 2D Dimensions IVSd0.9 (0.7-1.1cm)LVEF(%)73.7 (>50%)LVED Vol(simp.)136.9 mL LVDd4.8 (3.8-5.6cm)FS(%)43 %LVES Vol(simp.)58.3 mL PWd0.8 (0.7-1.1cm)LA (2D)4.5 (1.6-4.0cm)LVEF(%, simp.)57 % LVDs2.7 (2.5-4.0cm)Ao Root(2D)2.6 (2.0-3.7cm)LA ESV INDEX (BP)34.33 mL/m2 LVOT diam2.4 (1.8-2.4cm) M-Mode Dimensions EPSS1.2 cm LA (MM)5.1 (1.6-4.0cm) Ao Root(MM)3.6 (2.0-3.7cm) Aortic Valve AoV Vmax1.7 m/Shari Peak GR11.8 mmHgLVOT Vmax1.3 m/s AoV VTI0.4 mAo Mean GR6.8 mmHgLVOT VTI0.28 m [place] (VMAX)3.37 cm2AVA (VTI) 3.2 cm2 Mitral Valve MV E Vmax85.4 cm/sDECEL Bsex312 ms MV A Vmax49.6 cm/sP 1/2 T36 ms E/A ratio1.7MVA (PHT)6.1 cm2 TDI E/E' Wdxoqd86.7E/E' Lateral5.9 Medial E' Peak V8.01 cm/sLateral E' Peak V14.49 cm/s Left Ventricle Left ventricular cavity size is normal. There is normal LV segmental wall motion. There is normal lef t ventricular wall thickness. LVEF is 55-60%. The left ventricular diastolic function is normal. Right Ventricle Right ventricle is not well visualized. Right ventricular systolic function could not be assessed. Atria The left atrium size is normal. Right atrium is not well visualized. Aortic Valve The aortic valve is normal in structure and function. No aortic regurgitation is present. There is no aortic valvular stenosis. Mitral Valve The mitral valve is normal in structure and function. Mitral regurgitation is mild. There is no lidya l valve stenosis. Tricuspid Valve Tricuspid valve is not well visualized. Pulmonic Valve Pulmonic valve is not well visualized. Great Vessels The aortic root is normal in size. IVC is normal in size. Pericardium No pericardial effusion. Other Information Technically limited study due to body habitus, CHD. Conclusion LVEF is 55-60%.
[2025-05-29 23:49] VITALS: BP 121/41; PULSE 65; RESP 20; TEMP 98
[2025-05-30 03:40] VITALS: BP 109/37; PULSE 61; RESP 16; TEMP 97.8
[2025-05-30 05:13] LABS: IMMATURE GRANULOCYTE ABSOLUTE 0.06 K/uL (0-1); NUCLEATED RED BLOOD CELLS 0.0 % (0.0-0.19); PLATELET COUNT (AUTO) 262 K/uL (130-400); RED BLOOD CELL COUNT(AUTO) 4.64 MIL/uL (4.50-6.20); RED CELL DISTRIBUTION WIDTH 19.3 % (11.0-15.5); WHITE BLOOD COUNT (AUTO) 8.2 K/uL (4.8-10.8)
[2025-05-30 05:29] LABS: CREATININE 4.9 mg/dL (0.5-1.3); GLOMERULAR FILTR. RATE CALC 16.0 mL/min (>90); GLUCOSE,RANDOM 80.0 mg/dL (70-105); PHOSPHORUS 5.4 mg/dL (2.5-4.9); SODIUM SERUM 130.0 mmol/L (136-145)
[2025-05-30 05:34] LABS: UREA NITROGEN, BLOOD 120.0 mg/dL (7-18)
--- NOTE | 2025-05-30 06:45 | HMCIMG ---
EXAMINATION: ULTRASOUND OF THE RETROPERITONEUM. CLINICAL HISTORY: Pain. COMPARISON: CT abdomen and pelvis without contrast dated 05/28/2025. TECHNIQUE: Real-time grayscale ultrasound images of the kidneys. FINDINGS: The kidneys are normal in caliber, the right kidney measures 10.0 x 5.1 x 5.3 cm and the left kidney measures 11.7 x 5.7 x 5.6 cm in its craniocaudal, AP, and transverse dimensions respectively. There is normal renal cortical thickness, and cortical echogenicity. There is no renal calculus or hydronephrosis. The urinary bladder is normal in caliber and wall thickness (0.40 cm). There are no calculi in the urinary bladder. There is moderate free fluid in all the four quadrants. IMPRESSION: Moderate ascites. No other significant abnormality. /[place]
[2025-05-30 07:47] VITALS: BP 105/37; PULSE 67; RESP 17; TEMP 98.8
[2025-05-30 08:00] VITALS: O2SAT 93
[2025-05-30 11:17] VITALS: BP 118/33; PULSE 57; RESP 16; TEMP 98.4
[2025-05-30] MEDS: NA ZIRCON CYCLOSIL(LOKELMA 10GM) PO ONE ×2 (13:23→15:37)
--- NOTE | 2025-05-30 13:46 | PN ---
[facility] PROGRESS NOTE Date of Service: May 30, 2025 Time of Service: 13:41 SUBJECTIVE: [ ] Patient came to the emergency department with a chief complaint of constipation. Onset was one week. Location is rectum. Duration is constant. Character is described as no bowel movement for one week. There was no alleviating factors. There was no aggravating factors. Aunt reports associated decreased water intake for one week and bloating. Today in the emergency department sodium 128, potassium 5.3, creatinine 4.5, total bilirubin 1.9, no urinalysis has been collected or sent to lab. CT of abdomen and pelvis shows nodular liver, splenom egaly, portal hypertension. Emergency room physician recommended patient be admitted with a diagnosis of acute kidney injury. 05/29/25 patient was seen and examined. Patient appears fatigue weak failure to strive. Poor oral intake Review home medication we will hold off on NSAIDs in lisinopril. Waiting for oncologists recommendations apparently patient came from [id number] reports a wanted to be closer to home. 05/30/25 patient is seen earlier patient appears chronically ill fatigue. Waiting for oncologists recommendations. POA at bedside answer all questions appropriately. 1330 Dr Gutierrez spoke with Dr Salmon patient need [place] be [place] [facility] [place]ing [place] cancer spoke with Dr. India TRAN will accept patient on arrival. S poke with family on plan of care: PICC line will be placed today as per Dr Gutierrez recommendations. REVIEW OF SYSTEMS CONSTITUTIONAL: Denies fevers, chills, or night sweats. No unintentional weight loss reported. NEUROLOGICAL: Denies headache, amaurosis fugax, motor weakness, sensory deficit, vertigo/spinning sensation, gait abnormalities, or tremors. ENT: No hearing loss, otalgia, otorrhea, rhinitis, rhinorrhea, hoarseness, or sore throat. CARDIOVASCULAR: Denies any exertional angina, dyspnea on exertion, orthopnea, paroxysmal nocturnal dyspnea, palpitations, life-threatening arrhythmias, claudication. PULMONARY: Denies any shortness of breath, cough, phlegm/sputum, hemoptysis, pleuritic chest pain. SLEEP: Denies morning headaches, daytime somnolence or napping. Denies difficulty falling asleep, staying asleep, waking from sleep. Denies knowledge of snoring. GASTROINTESTINAL: Denies any type of dysphagia to either liquids or solids. Denies nausea, vomiting, pyrosis, early satiety, abdominal pain, diarrhea, constipation, or changes in stool consistency or caliber. Denies coffee-ground emesis, hematemesis, hematochezia, or melanotic stools. GENITOURINARY: Denies frequency, urgency, nocturia, hematuria or incontinence (Storage/Irritative symptoms.) Low urinary stream, straining to void, urinary intermittency or hesitancy, splitting of the voiding stream, terminal dribbling. ENDOCRINOLOGIC: Denies polyuria, polydipsia, polyphagia or heat/cold intolerances. HEMATOLOGIC: Denies thrombophilia/previous clots, or coagulopathy/bleeding disorders. ONCOLOGIC: Denies personal history of malignancy. DERMATOLOGIC: Denies rashes or pruritus. PSYCHIATRIC: Denies any suicidal or homicidal ideation. Denies hallucinations. PHYSICAL EXAM GENERAL APPEARANCE: The patient is awake, alert, and oriented, in no acute cardiopulmonary distress. NEUROLOGICAL: Cranial nerves II-XII grossly intact. Motor is 5/5 in bilateral upper and lower extremities proximal to distal. No sensory deficits. HEENT: Face is symmetric. Pupils are equal and reactive. Extraocular movements are intact. NECK: Supple. No JVD. No thyromegaly. No submental, submandibular, pre- /postauricular, occipital or supraclavicular lymphadenopathy. CHEST: Normal chest expansion. No Telemetry. LUNGS: Absence of any rales, rhonchi or any wheezing. CARDIOVASCULAR: Regular. S1 and S2 normal. No appreciable rubs, murmurs or gallops. ABDOMEN: Soft, nontender, and nondistended. There is no rebound, voluntary guarding, or rigidity. : Deferred. No Landis. EXTREMITIES: Non-edematous and not cyanotic. No clubbing. Good capillary refill. SKIN: No skin breakdown. Vital Signs (last 8hr) Date Time Temp Pulse Resp B/P (MAP) Pulse Ox O2 Delivery O2 Flow Rate FiO2 05/30/25 11:17 98.4 57 16 118/33 94 Room Air 05/30/25 08:00 93 Room Air* 0 21 05/30/25 07:47 98.8 67 17 105/37 93 Room Air LABS: Laboratory: Test 05/30/25 04:29 05/29/25 01:29 05/28/25 16:08 Range/Units White Blood Count 8.2 # 4.8-10.8 K/uL Red Blood Count 4.64 4.50-6.20 MIL/uL Hemoglobin 13.9 L 14.0-18.0 g/dL Hematocrit 39.9 L 42-54 % Mean Corpuscular Volume 86.0 79-99 fL Mean Corpuscular Hemoglobin 30.0 27.0-33.0 pg Mean Corpuscular Hemoglobin Concent 34.8 32.0-36.0 g/dL Red Cell Distribution Width 19.3 H 11.0-15.5 % Platelet Count 262 130-400 K/uL Mean Platelet Volume 11.8 H 7.5-10.5 fL Immature Granulocyte % (Auto) 0.7 0-1 % Neutrophils (%) (Auto) 78.4 H 40.0-77.0 % Lymphocytes (%) (Auto) 4.5 L 21.0-51.0 % Monocytes (%) (Auto) 14.8 H 3.0-13.0 % Eosinophils (%) (Auto) 1.1 0.0-8.0 % Basophils (%) (Auto) 0.5 0.0-5.0 % Neutrophils # (Auto) 6.5 1.8-7.7 K/uL Lymphocytes # (Auto) 0.4 L 1.0-4.8 K/uL Monocytes # (Auto) 1.2 H 0.1-1.0 K/uL Eosinophils # (Auto) 0.09 0.00-0.70 K/uL Basophils # (Auto) 0.04 0.00-0.20 K/uL Absolute Immature Granulocyte (auto 0.06 0-1 K/uL Nucleated Red Blood Cells 0.0 0.0-0.19 % Sodium Level 130 L 136-145 mmol/L Potassium Level 5.5 H 3.5-5.1 mmol/L Chloride Level 97 L 101-111 mmol/L Carbon Dioxide Level 18 L 21-32 mmol/L Blood Urea Nitrogen 120 *H 7-18 mg/dL Creatinine 4.9 H 0.5-1.3 mg/dL Glomerular Filtration Rate Calc 16 >90 mL/min Random Glucose 80 70-105 mg/dL Total Calcium 10.6 H 8.5-10.1 mg/dL Phosphorus Level 5.4 H 2.5-4.9 mg/dL Magnesium Level 2.30 1.80-2.40 mg/dL Urine Color YELLOW YELLOW Urine Appearance CLEAR CLEAR Urine pH 5.0 5.0-8.0 Urine Specific [place] 1.015 1.001-1.031 Urine Protein 20 H NEGATIVE mg/dL Urine Glucose (UA) NEGATIVE NEGATIVE mg/dL Urine Ketones NEGATIVE NEGATIVE mg/dL Urine Occult Blood NEGATIVE NEGATIVE Urine Nitrate NEGATIVE NEGATIVE Urine Bilirubin 0.5 H NEGATIVE mg/dL Urine Urobilinogen 0.2 0.2-1.0 mg/dL Urine Leukocyte Esterase NEGATIVE NEGATIVE Shelley/uL Urine RBC 2-5 H 0-1 /HPF Urine WBC 6-10 H 0-1 /HPF Urine Squamous Epithelial Cells RARE 0-2 /HPF Urine Bacteria None None Seen /HPF Urine Hyaline Casts 2-5 H 0-1 /LPF /LPF Urine Other Casts 1 None Seen /LPF Urine Osmolality 330 50-1200 mOsm/kg Urine Random Creatinine 265.24 H 30-135 mg/dL Urine Random Sodium < 13 L 40-220 mmol/l White Cell Morphology Comment See comments Red Blood Cell Morphology See comments Total Bilirubin 1.9 H 0.2-1.0 mg/dL Aspartate Amino Transf (AST/SGOT) 43 H 10-37 U/L Alanine Aminotransferase (ALT/SGPT) 21 12-78 U/L Alkaline Phosphatase 185 H 50-136 U/L Total Protein 7.0 6.0-8.3 g/dL Albumin 2.7 L 3.5-5.0 g/dL Current Medications Medications (Trade) Dose Ordered Sig/Paloma Route PRN Reason Start Time Stop Time Status Last Admin Dose Admin Acetaminophen (TYLenol 325MG TAB) 650 mg Q6H PRN PO TEMPERATURE GREATER THAN 101.5 05/28/25 19:30 06/27/25 19:29 Apixaban (EliquIS) 5 mg BID PO 05/29/25 21:00 06/28/25 20:59 05/30/25 08:40 5 MG Buspirone HCl (BUspar) 5 mg BID PO 05/29/25 21:00 06/28/25 20:59 05/30/25 08:39 5 MG Folic Acid (FOLic ACID 1 MG TABLET) 1 mg DAILY PO 05/30/25 09:00 06/29/25 08:59 05/30/25 08:40 1 MG Heparin Sodium (Porcine) (HEParin 5,000 UNIT VIAL) 5,000 unit BID SQ 05/28/25 21:00 05/28/25 20:34 DC Hydralazine HCl (APRESOLine 20MG INJ) 10 mg Q6H PRN IV For:SBP above 160;DBP above 90 05/28/25 19:30 06/27/25 19:29 Midodrine (PROAMatine 5 MG TABLET) 10 mg TID PO 05/29/25 14:00 06/28/25 13:59 05/30/25 08:40 10 MG Morphine Sulfate (morPHINE 2MG SYG) 2 mg Q4H PRN IVP SEVERE PAIN (7-10) 05/28/25 19:30 06/04/25 19:29 Ondansetron HCl (zoFRAN 4MG INJ) 4 mg Q6H PRN IV NAUSEA/VOMITING 05/28/25 19:30 06/27/25 19:29 05/30/25 13:24 4 MG Pantoprazole Sodium (PROTonix 40MG TAB) 40 mg DAILY PO 05/29/25 09:00 06/28/25 08:59 05/30/25 08:40 40 MG Sodium Chloride 1,000 ml @ 75 mls/hr [id number] IV 05/28/25 19:30 05/29/25 15:01 DC 05/29/25 10:03 75 MLS/HR DIAGNOSTICS / RADIOLOGY: [ ] ASSESSMENT: [ ] Acute kidney injury on CRF stage IV no hemodialysis, POA suspecting testicular cancer POA Failure to Thrive POA ascites secondary to liver cancer Metastatic POA liver cancer Metastatic with cirrhosis POA Hypercoaguable state on prophaxlis Eliquis s/p removal of tumor 01/18 POA Electrolytes derangement: Hyperkalemia Hyponatremia, , POA Constipation, POA Splenomegaly, POA Portal hypertension, POA severe protein calorie malnutrition POA Debility with physical deconditioning PPOA PLAN: [ ] His 30 years old was evaluated by oncologists suspecting to testicular cancer would like to start treatment patient will need to be transferred to [facility]. The patient's family was made aware of plan of care patient will need a PICC line doctor's [place] we will like to have it done prior to discharge. Admit: medical floor condition:poor prognosis Status:full IVF:[facility], oncologist will monitor H/H trends: transfuse to keep Hgb above 7.0 imaging : Sonogram renal. avoid NSAIDs stop lisinopril Labs cbc, cmp, mag+ Replace electrolytes as needed as per protocol to keep potassium above 4.0 magnesium 2.0. Home medications RECONCILED Decubitus precautions Supportive measures: DVT ppx, GI ppx all questions answered Supervising MD: Dr. avila P c/d This document was generated in part using voice recognition software, occasional wrong word or sound alike substitutions may have occurred due to the inherent limitations of voice recognition software. Read the chart carefully and recognize using context, where the substitutions have occurred. Although every effort was made to edit the content, social media marketing analyst and typing errors may occur ATTESTATION BY PHYSICIAN I have seen and examined the patient. I reviewed the documentation, medical decision making, and treatment plan as noted by the mid-level provider above. I agree with the findings and plan of care. Kimber Avila MD, ELIZABETH NP May 30, 2025 13:46
--- NOTE | 2025-05-30 14:18 | DS ---
Discharge Summary Hospital Course Summary: Patient came to the emergency department with a chief complaint of constipation. Onset was one week. Location is rectum. Duration is constant. Character is described as no bowel movement for one week. There was no alleviating factors. There was no aggravating factors. Aunt reports associated decreased water intake for one week and bloating. Today in the emergency department sodium 128, potassium 5.3, creatinine 4.5, total bilirubin 1.9, no urinalysis has been collected or sent to lab. CT of abdomen and pelvis shows nodular liver, splenomegaly, portal hypertension. Emergency room physician recommended patient be admitted with a diagnosis of acute kidney injury. 05/29/25 patient was seen and examined. Patient appears fatigue weak failure to strive. Poor oral intake Review home medication we will hold off on NSAIDs in lisinopril. Waiting for oncologists recommendations apparently patient came from [facility] [id number] reports a wanted to be closer to home. 05/30/25 patient is seen earlier patient appears chronically ill fatigue. Waiting for oncologists recommendations. POA at bedside answer all questions appropriately. The patient is refusing hospice at this time by are aware would palliative services for advised. 1330 Dr Gutierrez spoke with Dr Salmon patient need to be transfer to [facility] suspecting testicular cancer spoke with Dr. India TRAN will accept patient on arrival. Spoke with family on plan of care: PICC line will be placed today as per Dr Gutierrez recommendations.chemotherapy treatment. The patient was made aware of patient being transferred as per oncologists recommendations. Procedure(s): REASON: chf uknown ef ORDERING PHYSICIAN: JOSE ALEJANDRO PROCEDURE: ECHO [facility] - ECHO 2-D COMPLETE APPROVED REPORT EXAM: Two-dimensional and M-mode echocardiogram with Doppler and color Doppler. Study Details: hx: CHD INDICATION ICD: CHF unknown EF 2D Dimensions IVSd 0.9 (0.7-1.1cm) LVEF(%) 73.7 (>50%) LVED Vol(simp.) 136.9 mL LVDd 4.8 (3.8-5.6cm) FS(%) 43 % LVES Vol(simp.) 58.3 mL PWd 0.8 (0.7-1.1cm) LA (2D) 4.5 (1.6-4.0cm) LVEF(%, simp.) 57 % LVDs 2.7 (2.5-4.0cm) Ao Root(2D) 2.6 (2.0-3.7cm) LA ESV INDEX (BP) 34.33 mL/m2 LVOT diam 2.4 (1.8-2.4cm) M-Mode Dimensions EPSS 1.2 cm LA (MM) 5.1 (1.6-4.0cm) Ao Root(MM) 3.6 (2.0-3.7cm) Aortic Valve AoV Vmax 1.7 m/s Ao Peak GR 11.8 mmHg LVOT Vmax 1.3 m/s AoV VTI 0.4 m Ao Mean GR 6.8 mmHg LVOT VTI 0.28 m AMERICA (VMAX) 3.37 cm2 AMERICA (VTI) 3.2 cm2 Mitral Valve MV E Vmax 85.4 cm/s DECEL Time 232 ms MV A Vmax 49.6 cm/s P 1/2 T 36 ms E/A ratio 1.7 MVA (PHT) 6.1 cm2 TDI E/E' Medial 10.7 E/E' Lateral 5.9 Medial E' Peak V 8.01 cm/s Lateral E' Peak V 14.49 cm/s Left Ventricle Left ventricular cavity size is normal. There is normal LV segmental wall motion. There is normal left ventricular wall thickness. LVEF is 55-60%. The left ventricular diastolic function is normal. Right Ventricle Right ventricle is not well visualized. Right ventricular systolic function could not be assessed. Atria The left atrium size is normal. Right atrium is not well visualized. Aortic Valve The aortic valve is normal in structure and function. No aortic regurgitation is present. There is no aortic valvular stenosis. Mitral Valve The mitral valve is normal in structure and function. Mitral regurgitation is mild. There is no mitral valve stenosis. Tricuspid Valve Tricuspid valve is not well visualized. Pulmonic Valve Pulmonic valve is not well visualized. Great Vessels The aortic root is normal in size. IVC is normal in size. Pericardium No pericardial effusion. Other Information Technically limited study due to body habitus, CHD. Conclusion LVEF is 55-60%. REASON: HIGH AFP OUTPATIENT, TO RULE OUT TESTICULAR CANCER ORDERING PHYSICIAN: NAOMY CHAVEZ MD PROCEDURE: SCROTUM - US SCROTUM & CONTENTS Exam: Scrotal Ultrasound Technique: Static banegas scale and color doppler images were submitted. History: High AFP to rule out testicular cancer Comparison: None Findings: The testicles are normal in size, contour, and echotexture. The right testicle measures: 2.8 x 2.2 x 1.8 cm. The left testicle measures: 3.0 x 2.1 x 1.7 cm. There is patent blood flow within the testicles bilaterally. No intra-testicular mass or abnormal echotexture. Bilateral epididymides are normal in appearance. The right epididymis measures: 0.47 cm The left epididymis measures: 0.43 cm. No hydrocele. Small right-sided varicocele IMPRESSION: 1. No acute scrotal findings. 2. Small right-sided varicocele. REASON: veena ORDERING PHYSICIAN: GARFIELD GARCIA NP PROCEDURE: RENAL - US RENAL SONOGRAM EXAMINATION: ULTRASOUND OF THE RETROPERITONEUM. CLINICAL HISTORY: Pain. COMPARISON: CT abdomen and pelvis without contrast dated 05/28/2025. TECHNIQUE: Real-time grayscale ultrasound images of the kidneys. FINDINGS: The kidneys are normal in caliber, the right kidney measures 10.0 x 5.1 x 5.3 cm and the left kidney measures 11.7 x 5.7 x 5.6 cm in its craniocaudal, AP, and transverse dimensions respectively. There is normal renal cortical thickness, and cortical echogenicity. There is no renal calculus or hydronephrosis. The urinary bladder is normal in caliber and wall thickness (0.40 cm). There are no calculi in the urinary bladder. There is moderate free fluid in all the four quadrants. IMPRESSION: Moderate ascites. No other significant abnormality. REASON: veena ORDERING PHYSICIAN: GARFIELD GARCIA NP PROCEDURE: RENAL - US RENAL SONOGRAM EXAMINATION: ULTRASOUND OF THE RETROPERITONEUM. CLINICAL HISTORY: Pain. COMPARISON: CT abdomen and pelvis without contrast dated 05/28/2025. TECHNIQUE: Real-time grayscale ultrasound images of the kidneys. FINDINGS: The kidneys are normal in caliber, the right kidney measures 10.0 x 5.1 x 5.3 cm and the left kidney measures 11.7 x 5.7 x 5.6 cm in its craniocaudal, AP, and transverse dimensions respectively. There is normal renal cortical thickness, and cortical echogenicity. There is no renal calculus or hydronephrosis. The urinary bladder is normal in caliber and wall thickness (0.40 cm). There are no calculi in the urinary bladder. There is moderate free fluid in all the four quadrants. IMPRESSION: Moderate ascites. No other significant abnormality. 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 DISPOSITION: [facility] CONDITION: Guarded COMMERCIAL JOURNEYMAN ELECTRICIAN(S): Oncologists branch sales manager's IMAGING (S) report attached to summary : MICROBIOLOGY: report attached to summary; ACTIVITY: Ad daquan as tolerated HOME MEDICATIONS on hold Hospital reconciliation medication reviewed we will continue upon discharge Home Medications: Reported Medications Hydroxyzine HCl (Hydroxyzine HCl) 25 Mg Tablet, 1 TAB PO BID for anxiety for 30 Days, #60 TAB 0 Refills 05/28/25 Buspirone HCl (Buspirone HCl) 5 Mg Tablet, 1 TAB PO BID for 30 Days, #60 TAB 0 Refills 05/28/25 Lisinopril (Lisinopril) 10 Mg Tablet, 1 TAB PO DAILY for 30 Days, #30 TAB 0 Refills 25 Tramadol HCl/Acetaminophen (Tramadol-Acetaminophn 37.5-325) 37.5 Mg-325 Mg Tablet, 1-2 TAB PO Q8H PRN for pain for 2 Days, #12 TAB 0 Refills 05/28/25 Apixaban (Eliquis) 5 Mg Tablet, 5 MG PO BID, TAB 8/25 Folic Acid (Folic Acid) 0.4 Mg Tablet, 1 MG PO DAILY, TAB 05/28/25 Continued Medications: Apixaban (Eliquis) 5 Mg Tablet 5 MG PO BID, TAB Buspirone HCl (Buspirone HCl) 5 Mg Tablet 1 TAB PO BID for 30 Days, #60 TAB 0 Refills Folic Acid (Folic Acid) 0.4 Mg Tablet 1 MG PO DAILY, TAB Hydroxyzine HCl (Hydroxyzine HCl) 25 Mg Tablet 1 TAB PO BID for anxiety for 30 Days, #60 TAB 0 Refills Lisinopril (Lisinopril) 10 Mg Tablet 1 TAB PO DAILY for 30 Days, #30 TAB 0 Refills Tramadol HCl/Acetaminophen (Tramadol-Acetaminophn 37.5-325) 37.5 Mg-325 Mg Tablet 1-2 TAB PO Q8H PRN for pain for 2 Days, #12 TAB 0 Refills Time spent arranging discharge: 31-60 minutes ATTESTATION BY PHYSICIAN I have seen and examined the patient. I reviewed the documentation, medical decision making, and treatment plan as noted by the mid-level provider above. I agree with the findings and plan of care. Kimber Zimmerman MD, ELIZABETH NP May 30, 2025 14:17
--- NOTE | 2025-05-30 14:24 | PN ---
FOLLOWUP PROGRESS NOTE SUBJECTIVE: A 30-year-old male with a history of known metastatic liver cancer. The patient presented to the hospital with acute renal failure. The patient's workup consistent with prerenal azotemia from the cirrhosis. The patient was started on midodrine. The patient is to be seen by Oncology and the patient is being seen as a followup visit for all of the above. REVIEW OF SYSTEMS: CONSTITUTIONAL: He is feeling weak and tired. HEENT: No change in vision. No change in hearing. CARDIOVASCULAR: There is no current chest pain or palpitations. PULMONARY: There is no shortness of breath. GASTROINTESTINAL: Appetite is poor. MUSCULOSKELETAL: Complaints of weakness. PHYSICAL EXAMINATION: VITAL SIGNS: Blood pressure is 118/73, pulse in the 50s. GENERAL: Chronically ill male, much older than appearing. HEENT: Head is atraumatic. Pupils equal, round, reactive to light. Oropharynx is without exudate. Nares clear. NECK: There is no JVP. There is no thyromegaly. No masses. CARDIOVASCULAR: Regular. There is no S3 or S4 gallop. LUNGS: Coarse with equal thoracic movement. ABDOMEN: He does have ascites. EXTREMITIES: Reveal no clubbing or cyanosis. LABORATORY DATA: Sodium 130, potassium 5.5, BUN 120, creatinine 4.9. Hemoglobin 13, hematocrit 39. IMPRESSION: * Acute renal failure. * Metastatic liver cancer. * Cirrhosis. * Hypertension. PLAN: The patient's creatinine continues to be elevated. The patient with hyperkalemia. The patient will be given a one-time dose of Lokelma. We are awaiting final recommendations per Oncology. The patient would be a poor candidate for any form of renal replacement therapy if ever needed. We will continue to follow closely. All labs will be repeated in the morning. TID: [id number] RECEIPT: [id number]
--- NOTE | 2025-05-30 14:38 | NUR ---
[place] [facility] [place] PER GEOFFREY GARZA RN
[2025-05-30 15:00] LABS: INR 1.36 (0.85-1.15)
--- NOTE | 2025-05-30 15:25 | NUR ---
TRANSFER CALL PLACE TO [facility] SPOKE WITH CHAVA STINSON NURSE INFORMATION PROVIDED AND WILL CALL BACK. GREG
[2025-05-30] MEDS: CALCIUM CARB 500MG CHEW TAB PO SCH (15:40)
[2025-05-30 15:41] VITALS: BP 112/38; PULSE 67; RESP 16; TEMP 98.2
--- NOTE | 2025-05-30 15:55 | NUR ---
PICC IN PLACED BY PICC NURSE. GREG SANDOVAL
--- NOTE | 2025-05-30 16:00 | NUR ---
TRANSFER MET WITH PT AND AUNT WHICH STATES HAS MEDICAL POWER SIGN CONSENT FOR TRANSFER AND INFORM OF PROCESSES AUNT VERBALIZED UNDERSTANDING. GREG SANDOVAL
--- NOTE | 2025-05-30 16:52 | HMCIMG ---
Exam: Scrotal Ultrasound Technique: Static banegas scale and color doppler images were submitted. History: High AFP to rule out testicular cancer Comparison: None Findings: The testicles are normal in size, contour, and echotexture. The right testicle measures: 2.8 x 2.2 x 1.8 cm. The left testicle measures: 3.0 x 2.1 x 1.7 cm. There is patent blood flow within the testicles bilaterally. No intra-testicular mass or abnormal echotexture. Bilateral epididymides are normal in appearance. The right epididymis measures: 0.47 cm The left epididymis measures: 0.43 cm. No hydrocele. Small right-sided varicocele IMPRESSION: 1. No acute scrotal findings. 2. Small right-sided varicocele. /Bradley
--- NOTE | 2025-05-30 17:12 | NUR ---
TRANSFER STILL PENDING ACCEPTANCE FROM [facility] . GREG SANDOVAL
--- NOTE | 2025-05-30 17:14 | CONS ---
CONSULT NOTE: Patient 30-year-old gentleman with past medical history for congenital heart disease tricuspid atresia and ventricular septal defect who presented to [facility] with pathological fracture of C6 vertebrae. Imaging revealed cirrhotic liver with multiple masses, retroperitoneal masses encasing IVC possible metastatic disease to the right lung base, right adrenal gland and spleen. Biopsy showed poorly differentiated high grade neoplasm with immunostaining done with differential diagnosis was between Liver primary versus germ cell tumor. It seems the patient was treated in [place] with Avastin and atezolizumab patient received 3 cycle. Patient actually deteriorated significantly. Patient underwent two-stage cervical spine surgery on 01/04/2025 with the patient for cervical dissecting me with corpectomy. CT scan showed multiple hepatic masses with large right retroperitoneal mass 12 x 8 x 5 cm. Alpha-fetoprotein was 57,000 Brain MRI was negative for metastatic disease. Scrotal ultrasound showing no testicular masses. Bone scan was done on this patient December 2024 did not show any metastatic disease. It seems the patient never have any scan to evaluate response Of treatment since December 2024. Patient with significant failure to thrive. Patient complaining of abdominal pain. His pain is not 8/10 in severity. With the patient on Ultram which is not helping. Patient was admitted to the hospital because of GI bleeding. Past Medical History: Liver Cancer Hypertension Past Surgical History: 01/05/2025, Procedure: Spinal operation, NOS 1995, Procedure: Open heart valvuloplasty of pulmonary valve without replacement (procedure) Medications: Mupirocin Topical Ointment 2 % 2 % ointment Tramadol-Acetaminophen Oral 37.5 mg-325 mg 37.5-325 mg tablet Lactulose Oral Liquid 10 gram/15 mL solution 15 mL orally 4 times daily. Bromfed DM (Pulyrcdyyhcfznm-Jmqsvpxbm-MH Liquid 2 mg-30 mg-10 mg/5 mL via feeding tube) Buspirone Oral 5 mg tablet Doxycycline Hyclate Oral 100 mg capsule Hydroxyzine HCl Oral 25 mg tablet Levofloxacin Oral 500 mg tablet Lisinopril Oral 10 mg tablet Ondansetron Oral 4 mg tablet Medications reviewed and reconciled with patient. Allergies: amoxicillin clindamycin Smoking Status: Smoking Tobacco : Never smoker; Smokeless Tobacco : Never used smokeless tobacco; Vaping : Never vaped Social History: Single Not Working Denies Alcohol Denies Drugs Family History: Father: - Pancreatic cancer Mother: - Leukemia ROS: GENERAL: The patient denies any dizziness, chills, fever, or night sweats. HEENT: The patient denies any diplopia, hearing problems, oropharyngeal soreness, or jaundice. CARDIOPULMONARY: The patient denies any chest pain, palpitations, and shortness of breath or cough. GASTROINTESTINAL: The patient denies any dysphagia, nausea, vomiting, constipation, diarrhea, abdominal pain, or distention. GENITOURINARY: No dysuria, incontinence, or frequency. MUSCULOSKELETAL: The patient denies muscle or joint aches. The patient denies pitting edema. SKIN: The patient denies any rash or pruritus. NEUROLOGICAL: The patient denies any headache or double vision. Patient with difficulty hearing Vitals: Height: 67 in; Weight: 196 lb; Blood pressure: 85/37, Pulse: 74, Temperature: 96.5 F, Respirations: 16, Pain Scale: 7 Karnofsky: Not Assessed Physical Exam: GENERAL: No acute respiratory distress. VITAL SIGNS: Reviewed and stable. HEENT: The sclerae are clear. The pupils are equal and reactive to light. The oropharyngeal cavity is within normal limits. NECK: Supple without lymphadenopathy. CHEST: Lung is clear bilaterally there is no wheezing or crackles. HEART: Sounds are regular and rhythmic. ABDOMEN: No guarding or rigidity. Bowel sounds positive. EXTREMITIES: No pitting edema. No petechial lesions or bruises. SKIN: No bruises, rash, or petechial lesions. NEUROLOGICAL: The patient is alert and oriented. No focal deficits. Patient with significant failure to thrive with the patient using wheelchair LYMPH NODES: There is no lymphadenopathy could be felt in the neck, supraclavicular, or axillary. Impression: 1. New diagnosis of poorly differentiated carcinoma with metastatic disease to the liver multiple lesion. There is large retroperitoneal mass in the right 12 x 8 x 5 cm invading the IVC causing 75 luminal narrowing. Alpha-fetoprotein was 57,000. This patient receiving treatment as hepatic carcinoma with Avastin and atezolizumab with the patient does not look like responding 2. Anemia 3. Failure to thrive 4. History of cardiac congenital disease with tricuspid atresia and ventricular septal defect which was fixed 5. Possible GI bleed Plan: 1. I have long discussion with the patient and family member regarding the plan of care. I answer all question and concern and I spent more than 35 minutes. I review the labs, pathology, CT scan which was done at [facility]. I reviewed also the pathology. It seems the pathology was not clean-cut liver cancer. There was a differential diagnosis which germ cell yolk sac type. I tried to contact his primary oncologist at [facility] with the phone number [phone]. The office was closed. I will try to contact them tomorrow 2. It do not look like the patient is responding to the treatment at all. Patient with significant failure to thrive. 3. I did talk to the patient and family member. Even there was 1 person on the phone. I explained to them that the tumor he had is behaving like testicular cancer from my point review. This patient may be need to be treated with 1 cycle of testicular cancer and see if this patient improved. Otherwise this patient actually is going to . 4. This patient have hepatorenal syndrome. With the patient have significant poor prognosis. Especially with the patient failure to thrive. 5. It seems the patient and family is refusing hospice at this time. 6. patient could be transferred to [facility] and we will try to see if we could get him any chemotherapy treatment. 7. As the patient is DNR/DNI 8. I have long discussion with the patient regarding the side effects of chemo. I told the patient that could complain of nausea, vomiting, hemoptysis, diarrhea, neuropathy, bone marrow suppression and possible infection, myelodysplastic syndrome, leukemia or from the treatment. Laboratory Tests Test 05/30/25 04:29 White Blood Count 8.2 K/uL (4.8-10.8) # Red Blood Count 4.64 MIL/uL (4.50-6.20) Hemoglobin 13.9 g/dL (14.0-18.0) L Hematocrit 39.9 % (42-54) L Mean Corpuscular Volume 86.0 fL (79-99) Mean Corpuscular Hemoglobin 30.0 pg (27.0-33.0) Mean Corpuscular Hemoglobin Concent 34.8 g/dL (32.0-36.0) Red Cell Distribution Width 19.3 % (11.0-15.5) H Platelet Count 262 K/uL (130-400) Mean Platelet Volume 11.8 fL (7.5-10.5) H Immature Granulocyte % (Auto) 0.7 % (0-1) Neutrophils (%) (Auto) 78.4 % (40.0-77.0) H Lymphocytes (%) (Auto) 4.5 % (21.0-51.0) L Monocytes (%) (Auto) 14.8 % (3.0-13.0) H Eosinophils (%) (Auto) 1.1 % (0.0-8.0) Basophils (%) (Auto) 0.5 % (0.0-5.0) Neutrophils # (Auto) 6.5 K/uL (1.8-7.7) Lymphocytes # (Auto) 0.4 K/uL (1.0-4.8) L Monocytes # (Auto) 1.2 K/uL (0.1-1.0) H Eosinophils # (Auto) 0.09 K/uL (0.00-0.70) Basophils # (Auto) 0.04 K/uL (0.00-0.20) Absolute Immature Granulocyte (auto 0.06 K/uL (0-1) Nucleated Red Blood Cells 0.0 % (0.0-0.19) Prothrombin Time 14.0 SEC (9.6-11.6) H Prothromb Time International Ratio 1.36 (0.85-1.15) H Sodium Level 130 mmol/L (136-145) L Potassium Level 5.5 mmol/L (3.5-5.1) H Chloride Level 97 mmol/L (101-111) L Carbon Dioxide Level 18 mmol/L (21-32) L Blood Urea Nitrogen 120 mg/dL (7-18) *H Creatinine 4.9 mg/dL (0.5-1.3) H Glomerular Filtration Rate Calc 16 mL/min (>90) Random Glucose 80 mg/dL (70-105) Uric Acid 13.9 mg/dL (2.6-7.2) H Total Calcium 10.6 mg/dL (8.5-10.1) H Phosphorus Level 5.4 mg/dL (2.5-4.9) H Magnesium Level 2.30 mg/dL (1.80-2.40) Lactate Dehydrogenase 213 U/L (81-234) Beta HCG, Qualitative NEGATIVE (NEGATIVE) JOHN YAP MD May 30, 2025 17:14
--- NOTE | 2025-05-30 17:44 | NUR ---
TRANSFER INTAKE NURSE CALL BACK WITH ACCEPTANCE UNDER DR HENRIQUEZ TO ROOM 1429 AND PRIMARY NURSE TO CALL REPORT TO [phone] AND EMS WHEN READY. GREG SANDOVAL
--- NOTE | 2025-05-30 18:41 | NUR ---
[id number] Attempted to call report. About 30 seconds into the call, I was put on hold by Aileen. After 12 minutes on hold, Aileen got back on the line and let me know that they would be unable to take report right now. She stated to have the next nurse on shift call back later. I attempted to offer the direct extension to return call back, but the call was ended on [facility] end. Reported to Charge Nurse and [facility]n [facility].
[2025-05-30 20:00] VITALS: BP 110/43; PULSE 67; RESP 20; TEMP 98
--- NOTE | 2025-05-30 20:00 | NUR ---
called report at his time for [facility] transfer. report given to Ivan nurse who will be receiving patient in room 1420.
--- NOTE | 2025-05-30 23:37 | NUR ---
EMS HERE TO TRANSFER PATIENT TO [facility]. FAMILY MEMBER AT BEDSIDE. ALL BELONGINGS TAKEN BY FAMILY MEMBER
--- NOTE | 2025-05-31 03:27 | HMCIMG ---
EXAM: CR Chest, 1 view CLINICAL HISTORY: PICC line placement verification. COMPARISON: None provided. FINDINGS: Small pleural effusion and lower zone airspace disease on the right side, likely pneumonia. The remaining lung ramirez are clear. The right PICC line tip is around the SVC confluence. Borderline cardiomegaly. No pneumothorax. No acute osseous abnormality. Metal implants in the cervicothoracic spine. IMPRESSION: Small pleural effusion and lower zone airspace disease on the right side, likely pneumonia. The right PICC line tip is around the SVC confluence. Borderline cardiomegaly. /[place]
[2025-05-31] MEDS ORDERED: ASPIRIN 81MG CHEW TAB PO SCH (09:00)
== END 2025-05-30 23:47 | disposition short-term general hospital (02) | DRG 682 ==
LOC: EDH 15:31 → EDHIP 18:31 → 4AH 05-29 12:00
PROVIDERS: ADMIT Internal Medicine; ATTEND Internal Medicine
PROC: 02HV33Z Insertion of Infusion Device into Superior Vena Cava, Percutaneous Approach (ICD-10-PCS; principal; 2025-05-30)
DX: N17.9 Acute kidney failure, unspecified (principal); E43 Unspecified severe protein-calorie malnutrition; E87.1 Hypo-osmolality and hyponatremia; K76.6 Portal hypertension; I13.0 Hypertensive heart and chronic kidney disease with heart failure and stage 1 through stage 4 chronic kidney disease, or unspecified chronic kidney disease; R18.8 Other ascites; D68.59 Other primary thrombophilia; E87.5 Hyperkalemia; K59.00 Constipation, unspecified; I50.9 Heart failure, unspecified; D64.9 Anemia, unspecified; R62.7 Adult failure to thrive; I34.0 Nonrheumatic mitral (valve) insufficiency; K74.60 Unspecified cirrhosis of liver; N18.4 Chronic kidney disease, stage 4 (severe); Z51.5 Encounter for palliative care; Z80.0 Family history of malignant neoplasm of digestive organs; Z80.6 Family history of leukemia; Z85.05 Personal history of malignant neoplasm of liver; Z68.30 Body mass index [BMI] 30.0-30.9, adult
CPT/HCPCS: 36415; 36569; 71045; 74176; 76770; 76870; 80048; 80053; 81001; 82105; 82533; 82570; 83615; 83735; 83935; 84100; 84300; 84550; 84703; 85025; 85610; 87086; 93306; 96374; 99285; C1894; G0378; J2270; J2405; J7030; C1751